=== PATIENT | female | born 1955 | race African-American/Black ===

== ENCOUNTER 2022-07-22 11:39 | Emergency (ER) | payer MEDICARE, OTHER ==
[~2022-07-22] VITALS: Ht 160 cm; Wt 68.2 kg
[~2022-07-22 11:39] MED LIST: LISI-893 PO; MULT-29 PO; RISP2TAB45 PO; TRIH2TAB3 PO
[2022-07-22] MEDS ORDERED: BENA5TAB26 PO (11:42)
[2022-07-22] MEDS ORDERED: METF-1211 PO (11:42)
[2022-07-22] MEDS ORDERED: KETOROLAC TROMETHAMINE 30 MG/ML VIAL IM ONE (15:00)
[2022-07-22] MEDS ORDERED: LIDOCAINE 5% TRANSDERMAL PATCH TD ONE (15:00)
[2022-07-22] MEDS ORDERED: ACETAMINOPHEN 500 MG TABLET PO ONE (15:00)
[2022-07-22 15:06] VITALS: BP 138/88
== END 2022-07-22 15:47 | disposition home or self-care (01) ==
LOC: EMS 11:43
DX: M54.50 Low back pain, unspecified (principal); G89.29 Other chronic pain; M19.90 Unspecified osteoarthritis, unspecified site; I10 Essential (primary) hypertension; F20.9 Schizophrenia, unspecified; F12.90 Cannabis use, unspecified, uncomplicated; Z87.19 Personal history of other diseases of the digestive system; Z87.898 Personal history of other specified conditions; Z98.890 Other specified postprocedural states; Z88.5 Allergy status to narcotic agent; Z88.0 Allergy status to penicillin
CPT/HCPCS: 99283; 82962; 96372; J1885

== ENCOUNTER 2023-09-25 10:18 | Emergency (ER) | payer MEDICARE, MEDICAID ==
[~2023-09-25] VITALS: Ht 160 cm; Wt 68.2 kg
[~2023-09-25 10:18] MED LIST changes: +BENA5TAB48 PO; +METF-1211 PO; -MULT-29 PO
[2023-09-25 10:23] VITALS: BP 134/72; PULSE 72; RESP 18; TEMP 98.2
[2023-09-25] MEDS ORDERED: IBUPROFEN 600 MG TABLET PO ONE (11:30)
[2023-09-25] MEDS ORDERED: ACETAMINOPHEN 500 MG TABLET PO ONE (11:30)
[2023-09-25] MEDS ORDERED: IBUP-1554 PO (12:42)
== END 2023-09-25 12:51 | disposition home or self-care (01) ==
LOC: EMS 10:37
DX: S93.401A Sprain of unspecified ligament of right ankle, initial encounter (principal); S40.011A Contusion of right shoulder, initial encounter; M19.90 Unspecified osteoarthritis, unspecified site; I10 Essential (primary) hypertension; F20.9 Schizophrenia, unspecified; G89.29 Other chronic pain; F12.90 Cannabis use, unspecified, uncomplicated; Z90.49 Acquired absence of other specified parts of digestive tract; Z88.0 Allergy status to penicillin; Z88.8 Allergy status to other drugs, medicaments and biological substances; W01.0XXA Fall on same level from slipping, tripping and stumbling without subsequent striking against object, initial encounter; Y93.89 Activity, other specified; Y92.89 Other specified places as the place of occurrence of the external cause; Y99.8 Other external cause status
CPT/HCPCS: 82962; 99284

== ENCOUNTER 2024-01-07 12:48 | Emergency (ER) | payer MEDICARE, OTHER ==
[~2024-01-07] VITALS: Ht 160 cm; Wt 59.1 kg
[~2024-01-07 12:48] MED LIST changes: +IBUP-1554 PO
[2024-01-07] MEDS ORDERED: EMPA10TA3 PO (12:55)
[2024-01-07 12:56] VITALS: TEMP 98.9
[2024-01-07] MEDS ORDERED: METH-812 PO (14:55)
[2024-01-07] MEDS ORDERED: IBUP-1554 PO (14:55)
[2024-01-07 15:18] VITALS: BP 131/70; PULSE 76; RESP 16
[2024-01-07] MEDS: KETOROLAC TROMETHAMINE 30 MG/ML VIAL IM ONE (15:24)
== END 2024-01-07 15:35 | disposition home or self-care (01) ==
LOC: EMS 13:05
DX: M54.50 Low back pain, unspecified (principal); M19.90 Unspecified osteoarthritis, unspecified site; E11.9 Type 2 diabetes mellitus without complications; I10 Essential (primary) hypertension; F20.9 Schizophrenia, unspecified; G89.29 Other chronic pain; F12.90 Cannabis use, unspecified, uncomplicated; Z90.49 Acquired absence of other specified parts of digestive tract; Z88.0 Allergy status to penicillin; Z88.8 Allergy status to other drugs, medicaments and biological substances
CPT/HCPCS: 99283; 82962; 96372; J1885

== ENCOUNTER 2025-01-19 11:51 | Emergency (ER) | payer MEDICARE, OTHER ==
[~2025-01-19] VITALS: Ht 160 cm; Wt 59.1 kg
[~2025-01-19 11:51] MED LIST changes: +EMPA10TA3 PO; -METF-1211 PO; +METH-812 PO
[2025-01-19 11:58] VITALS: BP 121/57; PULSE 72; RESP 18; TEMP 97.8; O2SAT 99
[2025-01-19] MEDS: ONDANSETRON 4 MG TABLET PO ONE (12:33)
[2025-01-19] MEDS: LIDOCAINE 5% TRANSDERMAL PATCH TD ONE (12:33)
[2025-01-19] MEDS: ACETAMINOPHEN 325 MG TABLET PO ONE (12:33)
[2025-01-19] MEDS: KETOROLAC TROMETHAMINE 30 MG/ML VIAL IM ONE (12:34)
[2025-01-19 12:36] LABS: BASOPHILS % (AUTO) 0.6 % (0.0-2.0); HEMATOCRIT 40.4 % (36-46); HEMOGLOBIN 13.4 g/dL (12.0-16.0); LYMPHOCYTES # (AUTO) 2.1 K/uL (1.0-4.8); MEAN CORPUSCULAR HEMOGLOBIN 29.3 pg (26.0-34.0); MEAN CORPUSCULAR HGB CONC 33.1 G/dL (31.0-37.0); MEAN CORPUSCULAR VOLUME 89 fL (80-100); MONOCYTES # (AUTO) 0.9 K/uL (0.1-1.0); MONOCYTES % (AUTO) 9.6 % (2.0-9.0); NEUTROPHILS # (AUTO) 5.9 K/uL (1.8-7.7); NEUTROPHILS % (AUTO) 64.8 % (40.0-70.0); PLATELET COUNT (AUTO) 179 K/uL (150-450); RED BLOOD CELL COUNT(AUTO) 4.56 MIL/uL (4.00-5.20); RED CELL DISTRIBUTION WIDTH 13.8 % (11.5-14.5); WHITE BLOOD COUNT (AUTO) 9.1 K/uL (4.5-11.0)
[2025-01-19 12:43] LABS: CALCIUM, TOTAL 9.6 mg/dL (8.8-10.5); CREATININE 1.4 mg/dL (0.60-1.30)
[2025-01-19] MEDS ORDERED: ONDA-104 PO (12:50)
[2025-01-19] MEDS ORDERED: IBUP-1492 PO (12:50)
[2025-01-19] MEDS ORDERED: ACET-2247 PO (12:50)
[2025-01-19] MEDS ORDERED: LIDO700A15 TP (12:50)
[2025-01-19] MEDS: POTASSIUM CHLORIDE 20 MEQ ER TABLET PO ONE (12:51)
== END 2025-01-19 12:56 | disposition home or self-care (01) ==
LOC: EMS 11:51
DX: M54.50 Low back pain, unspecified (principal); R11.2 Nausea with vomiting, unspecified; E87.6 Hypokalemia; E11.9 Type 2 diabetes mellitus without complications; I10 Essential (primary) hypertension; F12.90 Cannabis use, unspecified, uncomplicated; K21.9 Gastro-esophageal reflux disease without esophagitis; F20.9 Schizophrenia, unspecified; Z88.0 Allergy status to penicillin; Z90.49 Acquired absence of other specified parts of digestive tract; Z79.899 Other long term (current) drug therapy
CPT/HCPCS: 99284; 80048; 83690; 85025; 36415; 96372; J1885; Q0162

== ENCOUNTER 2025-02-01 12:53 | Inpatient (IN) | payer MEDICARE, MEDICAID ==
[~2025-02-01] VITALS: Ht 160 cm; Wt 53.5 kg
[~2025-02-01 12:53] MED LIST changes: +ACET-2247 PO; +IBUP-1492 PO; +LIDO700A15 TP; +ONDA-104 PO
[2025-02-01] MEDS ORDERED: HALO5VIA16 IM (13:01)
[2025-02-01 13:16] LABS: GLUCOMETER DEV NAME(LOC) ERT.6; GLUCOSE,POINT OF CARE 146 MG/DL (70-110)
[2025-02-01 13:34] LABS: BASOPHILS % (AUTO) 0.3 % (0.0-2.0); EOSINOPHILS % (AUTO) 0.1 % (1.0-6.0); HEMATOCRIT 37.8 % (36-46); HEMOGLOBIN 12.2 g/dL (12.0-16.0); LYMPHOCYTES # (AUTO) 2.7 K/uL (1.0-4.8); LYMPHOCYTES % (AUTO) 19.2 % (22.0-44.0); MEAN CORPUSCULAR HGB CONC 32.4 G/dL (31.0-37.0); MEAN CORPUSCULAR VOLUME 90 fL (80-100); MONOCYTES # (AUTO) 1.4 K/uL (0.1-1.0); MONOCYTES % (AUTO) 10.2 % (2.0-9.0); NEUTROPHILS # (AUTO) 9.8 K/uL (1.8-7.7); NEUTROPHILS % (AUTO) 70.2 % (40.0-70.0); PLATELET COUNT (AUTO) 188 K/uL (150-450); RED BLOOD CELL COUNT(AUTO) 4.22 MIL/uL (4.00-5.20); RED CELL DISTRIBUTION WIDTH 13.6 % (11.5-14.5)
[2025-02-01 13:39] LABS: ANION GAP 14 mmol/L (8-16); CALCIUM, TOTAL 9.4 mg/dL (8.8-10.5); CARBON DIOXIDE 24 mmol/L (22-29); CHLORIDE 105 mmol/L (98-107); CREATININE 2.02 mg/dL (0.60-1.30); GLOMERULAR FILTR. RATE CALC 30 mL/min (>60); GLUCOSE,RANDOM 121 mg/dL (70-110); POTASSIUM 3.9 mmol/L (3.5-5.1); SODIUM SERUM 143 mmol/L (136-145); UREA NITROGEN, BLOOD 36 mg/dL (7-18)
[2025-02-01 13:45] LABS: ALBUMIN 3.8 g/dL (3.4-5.0); BILIRUBIN,DIRECT 0.2 mg/dL (0.00-0.20); BILIRUBIN,TOTAL 0.7 mg/dL (0.1-1.0); TOTAL PROTEIN, SERUM 7.6 g/dL (6.4-8.2)
[2025-02-01] MEDS: CYCLOBENZAPRINE HCL 10 MG TABLET PO ONE (13:55)
[2025-02-01] MEDS: KETOROLAC TROMETHAMINE 30 MG/ML VIAL IM ONE (13:55)
[2025-02-01] MEDS: LIDOCAINE 5% TRANSDERMAL PATCH TD ONE (13:56)
[2025-02-01] MEDS: ACETAMINOPHEN 500 MG TABLET PO ONE (13:58)
[2025-02-01 14:01] LABS: ALCOHOL, BLOOD (SERUM) < 3 mg/dL (0-10)
[2025-02-01 14:31] LABS: COVID AG,FIA SOURCE NASAL SWAB
[2025-02-01 14:49] LABS: SARS-COV2 (COVID) ANTIGEN,FIA Negative (Negative)
[2025-02-01 16:36] VITALS: O2SAT 100
[2025-02-01] MEDS ORDERED: SODIUM CHLORIDE 0.9% 1,000 ML IV ONE (18:15)
[2025-02-01] MEDS ORDERED: DEXTROSE 50%-WATER 25 GM/50 ML SYRINGE IVP PRN (18:15)
[2025-02-01] MEDS ORDERED: BISACODYL 10 MG RECTAL RECTAL SUPPOSITORY PR PRN (18:15)
[2025-02-01] MEDS ORDERED: INSULIN LISPRO 100 UNITS/ML SQ PRN (18:15)
[2025-02-01] MEDS ORDERED: MAGNESIUM HYDROXIDE SUSPENSION 30 ML UDCUP PO PRN (18:15)
[2025-02-01] MEDS ORDERED: ZOLPIDEM TARTRATE 5 MG TABLET PO PRN (18:15)
[2025-02-01] MEDS ORDERED: ACETAMINOPHEN 325 MG TABLET PO PRN (18:15)
[2025-02-01] MEDS ORDERED: ONDANSETRON HCL 4 MG/2 ML VIAL IVP PRN (18:15)
[2025-02-01] MEDS ORDERED: DOCUSATE SODIUM 100 MG CAPSULE PO SCH (20:51)
[2025-02-01] MEDS ORDERED: RisperiDONE 2 MG TABLET PO SCH (20:51)
[2025-02-01 21:24] VITALS: BP 145/65; PULSE 63; RESP 18; TEMP 97.9; O2SAT 96
[2025-02-01 22:11] LABS: GLUCOMETER DEV NAME(LOC) BV2S.; GLUCOSE,POINT OF CARE 147 MG/DL (70-110)
[2025-02-02] MEDS ORDERED: HEPARIN SODIUM,PORCINE 5,000 UNITS/ML VIAL SQ SCH
[2025-02-02 06:26] LABS: GLUCOMETER DEV NAME(LOC) BV2S.; GLUCOSE,POINT OF CARE 82 MG/DL (70-110)
[2025-02-02 08:00] VITALS: BP 139/59; PULSE 61; RESP 18; TEMP 97.3; O2SAT 95
[2025-02-02] MEDS ORDERED: PANTOPRAZOLE SODIUM 40 MG DR TABLET PO SCH (09:00)
[2025-02-02] MEDS ORDERED: BENAZEPRIL HCL 5 MG TABLET PO SCH (09:00)
[2025-02-02] MEDS ORDERED: LISINOPRIL 10 MG TABLET PO SCH (09:00)
[2025-02-02] MEDS ORDERED: EMPAGLIFLOZIN 10 MG TABLET PO SCH (09:00)
[2025-02-02] MEDS ORDERED: HALO50VI29 IM (19:03)
[2025-02-02 20:25] VITALS: BP 146/63; PULSE 75; RESP 18; TEMP 97.3; O2SAT 97
[2025-02-03 08:17] VITALS: BP 124/60; PULSE 69; RESP 16; TEMP 96.7; O2SAT 98
[2025-02-03] MEDS ORDERED: MAGNESIUM HYDROXIDE SUSPENSION 30 ML UDCUP PO PRN (10:45)
[2025-02-03] MEDS ORDERED: OMEPRAZOLE 20 MG CAPSULE PO PRN (10:45)
[2025-02-03] MEDS ORDERED: PETROLATUM,WHITE 28 GM JELLY TP PRN (10:45)
[2025-02-03] MEDS ORDERED: BENZOCAINE/MENTHOL [CEPACOL] LOZENGE PO PRN (10:45)
[2025-02-03] MEDS ORDERED: DOCUSATE SODIUM 100 MG CAPSULE PO PRN (10:45)
[2025-02-03] MEDS ORDERED: ALBUTEROL SULFATE HFA 90 MCG/PUFF 8 GM INHALER IH PRN (10:45)
[2025-02-03] MEDS ORDERED: BACITRACIN 28 GM OINTMENT TP PRN (10:45)
[2025-02-03] MEDS ORDERED: LOPERAMIDE HCL 2 MG CAPSULE PO PRN (10:45)
[2025-02-03] MEDS ORDERED: ONDANSETRON 4 MG TABLET PO PRN (10:45)
[2025-02-03] MEDS ORDERED: CloNIDine HCL 0.1 MG TABLET PO PRN (10:45)
[2025-02-03 12:05] LABS: GLUCOMETER DEV NAME(LOC) BV2S.; GLUCOSE,POINT OF CARE 116 MG/DL (70-110)
[2025-02-03] MEDS: METHOCARBAMOL 750 MG TABLET PO SCH (16:01)
[2025-02-03 16:56] LABS: GLUCOMETER DEV NAME(LOC) BV2S.; GLUCOSE,POINT OF CARE 97 MG/DL (70-110)
[2025-02-03] MEDS: ZOLPIDEM TARTRATE 10 MG TABLET PO PRN (20:40)
[2025-02-03 21:00] LABS: GLUCOMETER DEV NAME(LOC) BV2S.; GLUCOSE,POINT OF CARE 112 MG/DL (70-110)
[2025-02-03 21:08] VITALS: BP 118/60; PULSE 86; RESP 18; TEMP 96.5; O2SAT 100
[2025-02-04 06:41] LABS: GLUCOMETER DEV NAME(LOC) BV2S.; GLUCOSE,POINT OF CARE 101 MG/DL (70-110)
[2025-02-04] MEDS: BENAZEPRIL HCL 5 MG TABLET PO SCH (08:49)
[2025-02-04] MEDS: EMPAGLIFLOZIN 10 MG TABLET PO SCH (08:49)
[2025-02-04 08:53] VITALS: BP 143/89; PULSE 64; RESP 16; TEMP 96.9
[2025-02-04 11:36] LABS: GLUCOMETER DEV NAME(LOC) BV2S.; GLUCOSE,POINT OF CARE 127 MG/DL (70-110)
[2025-02-04 20:05] VITALS: BP 148/111; PULSE 58; RESP 18; TEMP 98.4; O2SAT 99
[2025-02-05 08:37] VITALS: BP 115/62; PULSE 62; RESP 18; TEMP 97.2; O2SAT 98
[2025-02-05] MEDS: HALOPERIDOL DECANOATE 100 MG/ML VIAL IM ONE (16:51)
[2025-02-05 21:10] VITALS: BP 112/6; PULSE 62; RESP 18; TEMP 97.6; O2SAT 98
[2025-02-06] MEDS: RisperiDONE MICROSPHERES 50 MG/2 ML SYRINGE IM ONE (21:56)
[2025-02-07 07:11] LABS: GLUCOMETER DEV NAME(LOC) BV2S.; GLUCOSE,POINT OF CARE 91 MG/DL (70-110)
[2025-02-07 08:41] VITALS: RESP 19; O2SAT 98
[2025-02-07] MEDS: IBUPROFEN 600 MG TABLET PO PRN (08:41)
[2025-02-07] MEDS: LORazepam 2 MG TABLET PO PRN (08:41)
[2025-02-07 09:04] VITALS: RESP 17
[2025-02-07 09:41] VITALS: RESP 18; O2SAT 97
[2025-02-07 19:59] VITALS: BP 108/69; PULSE 79; RESP 16; RESP 17; TEMP 98.2; O2SAT 98
[2025-02-07 22:37] VITALS: BP 108/69; PULSE 79; RESP 16; TEMP 98.2; O2SAT 98
[2025-02-08] VITALS (8 sets, daily range): BP systolic 151–153; BP diastolic 59–108; PULSE 64–84; RESP 16–18; TEMP 97.4–98.1; O2SAT 95–100
[2025-02-08] MEDS: ACETAMINOPHEN 325 MG TABLET PO PRN (12:36)
[2025-02-09 00:45] VITALS: BP 142/88; PULSE 90; RESP 18; TEMP 97.9
[2025-02-09 02:16] VITALS: BP 142/85; PULSE 98; RESP 18
[2025-02-09 08:30] VITALS: RESP 18; TEMP 98.1
[2025-02-09] MEDS ORDERED: INFLUENZA VIRUS VACCINE TVS IM. ONE (11:45)
[2025-02-09] MEDS ORDERED: PNEUMOCOCCAL VACCINE POLYVALENT 0.5 ML SYRINGE [PPSV23] IM. ONE (11:45)
[2025-02-09] MEDS ORDERED: [UNRECOGNIZED DRUG - OTHER] IM. ONE (11:45)
[2025-02-09] MEDS ORDERED: DiphenhydrAMINE HCL 50 MG/ML VIAL ONE (15:57)
[2025-02-09] MEDS ORDERED: HALOPERIDOL LACTATE 5 MG/ML VIAL ONE (15:57)
[2025-02-09] MEDS ORDERED: LORazepam 2 MG/ML VIAL ONE (15:57)
[2025-02-09] MEDS: DiphenhydrAMINE HCL 50 MG/ML VIAL IM ONE (16:12)
[2025-02-09] MEDS: HALOPERIDOL LACTATE 5 MG/ML VIAL IM ONE (16:13)
[2025-02-09] MEDS: LORazepam 2 MG/ML VIAL IM ONE (16:13)
[2025-02-09] MEDS: MAG HYDROX/ALUMINUM HYD/SIMETH ES 30 ML SUSPENSION UDCUP PO PRN (17:45)
[2025-02-09 20:24] VITALS: BP 109/72; PULSE 68; RESP 17; TEMP 98.2; O2SAT 100
[2025-02-09 20:30] VITALS: BP 109/72; PULSE 68; RESP 17; TEMP 98.2
[2025-02-10 08:03] VITALS: BP 130/57; PULSE 92; RESP 18; TEMP 98.2; O2SAT 100
[2025-02-10 14:20] VITALS: RESP 18; O2SAT 100
[2025-02-10 15:20] VITALS: RESP 17; O2SAT 100
[2025-02-10 20:00] VITALS: RESP 18
[2025-02-11 01:40] VITALS: BP 136/60; PULSE 62; RESP 18; TEMP 98; O2SAT 99
[2025-02-11 08:57] VITALS: BP 142/65; PULSE 69; RESP 18; TEMP 98.3; O2SAT 100
[2025-02-11] MEDS ORDERED: RisperiDONE 2 MG TABLET PO SCH (09:00)
[2025-02-11] MEDS ORDERED: LITHIUM CARBONATE 300 MG CAPSULE PO SCH (09:00)
[2025-02-11] MEDS ORDERED: DIVALPROEX SODIUM 500 MG DR TABLET PO SCH (09:00)
[2025-02-11] MEDS: LIDOCAINE 5% TRANSDERMAL PATCH TD SCH (09:30)
[2025-02-11 13:07] VITALS: RESP 18
[2025-02-11 14:07] VITALS: RESP 18
[2025-02-11] MEDS: -LIDODERM PATCH NOTE- MISC SCH (20:11)
[2025-02-11 20:13] VITALS: BP 185/79; PULSE 60; RESP 17; TEMP 97.4; O2SAT 100
[2025-02-11 20:39] VITALS: BP 150/80; RESP 18
[2025-02-12] MEDS: OLANZapine 5 MG RAPDIS TABLET PO PRN (02:52)
[2025-02-12 08:27] VITALS: BP 141/61; PULSE 60; RESP 17; TEMP 97.5; O2SAT 100
[2025-02-12 20:01] VITALS: BP 105/50; PULSE 67; RESP 17; TEMP 97.2; O2SAT 97
[2025-02-13 06:50] LABS: GLUCOMETER DEV NAME(LOC) BV2S.; GLUCOSE,POINT OF CARE 115 MG/DL (70-110)
[2025-02-13 08:34] VITALS: BP 157/78; PULSE 78; RESP 16; TEMP 93.7; O2SAT 82
[2025-02-13 20:23] VITALS: BP 126/56; PULSE 60; RESP 16; TEMP 97.3; O2SAT 100
[2025-02-14 08:41] VITALS: BP 138/51; PULSE 63; RESP 16; TEMP 97.2; O2SAT 100
[2025-02-14 21:11] VITALS: BP 129/88; PULSE 68; RESP 16; TEMP 98; O2SAT 98
[2025-02-15 07:45] VITALS: BP 127/108; PULSE 81; RESP 18; TEMP 95.9; O2SAT 100
[2025-02-15 08:32] VITALS: BP 127/98; PULSE 81; RESP 18; TEMP 95.9; O2SAT 100
[2025-02-15 20:08] VITALS: BP 137/84; PULSE 90; RESP 16; TEMP 98; O2SAT 98
[2025-02-15 20:23] VITALS: BP 157/69; PULSE 82; RESP 16; TEMP 97.7; O2SAT 98
[2025-02-16 06:21] LABS: GLUCOMETER DEV NAME(LOC) BV2S.; GLUCOSE,POINT OF CARE 85 MG/DL (70-110)
[2025-02-16 08:01] LABS: LITHIUM < 0.20 mmol/L (0.60-1.20)
[2025-02-16 08:14] LABS: VALPROIC ACID < 3 mcg/mL (50-100)
[2025-02-16 10:58] VITALS: RESP 17
[2025-02-16 20:01] VITALS: BP 128/65; PULSE 68; RESP 18; TEMP 97.5; O2SAT 99
[2025-02-16 21:11] LABS: GLUCOMETER DEV NAME(LOC) BV2S.; GLUCOSE,POINT OF CARE 109 MG/DL (70-110)
[2025-02-17 06:35] LABS: GLUCOMETER DEV NAME(LOC) BV2S.; GLUCOSE,POINT OF CARE 79 MG/DL (70-110)
[2025-02-17 11:30] LABS: GLUCOMETER DEV NAME(LOC) BV2S.; GLUCOSE,POINT OF CARE 88 MG/DL (70-110)
[2025-02-17 14:43] VITALS: BP 140/69; PULSE 64; RESP 16; TEMP 97.5; O2SAT 98
[2025-02-17 14:50] VITALS: RESP 17
[2025-02-17 15:50] VITALS: RESP 17
[2025-02-17 16:50] LABS: GLUCOMETER DEV NAME(LOC) BV2S.; GLUCOSE,POINT OF CARE 120 MG/DL (70-110)
[2025-02-17 20:22] VITALS: BP 162/58; PULSE 64; RESP 17; TEMP 97.5; O2SAT 99
[2025-02-18 04:31] LABS: GLUCOMETER DEV NAME(LOC) BV2S.; GLUCOSE,POINT OF CARE 104 MG/DL (70-110)
[2025-02-18 08:41] VITALS: RESP 17
[2025-02-18 21:07] VITALS: BP 109/66; PULSE 64; RESP 16; TEMP 98.1; O2SAT 99
[2025-02-19 08:37] VITALS: RESP 16
[2025-02-19 20:22] VITALS: BP 174/58; PULSE 73; RESP 16; TEMP 97.8; O2SAT 99
[2025-02-20 08:35] VITALS: BP 131/51; PULSE 66; RESP 17; TEMP 97.6; O2SAT 98
[2025-02-20 13:46] LABS: GLUCOMETER DEV NAME(LOC) BV2S.; GLUCOSE,POINT OF CARE 115 MG/DL (70-110)
[2025-02-20 20:17] VITALS: BP 154/64; PULSE 80; RESP 16; TEMP 98; O2SAT 98
[2025-02-21 07:10] LABS: GLUCOMETER DEV NAME(LOC) BV2S.; GLUCOSE,POINT OF CARE 120 MG/DL (70-110)
[2025-02-21 08:30] VITALS: BP 125/57; PULSE 68; RESP 18; TEMP 97.2; O2SAT 97
[2025-02-21] MEDS: RisperiDONE MICROSPHERES 50 MG/2 ML SYRINGE IM SCH (10:02)
== END 2025-02-21 16:50 | disposition home or self-care (01) | DRG 885 ==
LOC: EMS 12:58 → EDBEDREQ 14:32 → B2S 18:55 → EMS 19:43
PROVIDERS: ADMIT Psychiatry & Neurology Psychiatry; ATTEND Psychiatry & Neurology Psychiatry
DX: F20.0 Paranoid schizophrenia (principal); N18.9 Chronic kidney disease, unspecified; K21.9 Gastro-esophageal reflux disease without esophagitis; I12.9 Hypertensive chronic kidney disease with stage 1 through stage 4 chronic kidney disease, or unspecified chronic kidney disease; Z20.822 Contact with and (suspected) exposure to COVID-19; B18.2 Chronic viral hepatitis C; K59.00 Constipation, unspecified; E11.22 Type 2 diabetes mellitus with diabetic chronic kidney disease; F17.200 Nicotine dependence, unspecified, uncomplicated; G89.29 Other chronic pain; M54.9 Dorsalgia, unspecified; Z79.899 Other long term (current) drug therapy
CPT/HCPCS: 80048; 80076; 80164; 80178; 82962; 85025; 87340; 99285; G0480; J1200; J1630; J1885; J2060; J2794